=== PATIENT | female | born 1975 | race Caucasian/White ===

== ENCOUNTER 2017-06-21 08:22 | Emergency (ER) | payer OTHER ==
[~2017-06-21] VITALS: Ht 175.3 cm; Wt 60.1 kg
[~2017-06-21 08:22] MED LIST: CMD/25 PO
[2017-06-21 08:29] VITALS: TEMP 37.1; Ht 175.3 cm; Wt 60.1 kg
--- NOTE | 2017-06-21 09:36 | EMERGENCY ROOM VISIT NOTE ---
History Report prepared by Bunny: Ava Connor Under the Supervision of: Dr. Steve Curiel M.D. First contact with patient: 08:37 Chief Complaint: ARM PAIN Stated Complaint: LEFT ARM PAIN/ARMPIT-HX BLOOD CLOTS History of Present Illness The patient is a 42 year old female who presents to the Emergency Room with complaints of persistent pain in her left arm pit that began last evening. She currently rates her discomfort as a 2/10 in severity. The patient states that she has a history of DVTs of her left upper extremity two years ago. She states that she was started on Coumadin, but states that she has been taken off the Coumadin. The patient states that after further investigation, she was found to have Thoracic Outlet Syndrome. She states that she has been told that she is not a surgical candidate. The patient states that last evening she developed pain in her left armpit that was similar to when she had her DVTs. She states that after she consulted her PCP this morning, she was instructed to come to the emergency department for further evaluation and treatment. The patient does report that with her last DVT, she had swelling and discoloration to her left arm, but states that she does not have that this time. She does report chronic numbness to her left arm due to her Thoracic Outlet Syndrome. The patient states that she was previously on control when she was diagnosed with her first DVT, but states that she has been taken off her control and instructed to not take any hormones. She denies any recent travel, chance of , or being a smoker. The patient denies any heavy lifting. She additionally reports that she went to the chiropractor on Saturday for neck pain, but states that she has been there in the past for her pain. The patient denies any chest pain or shortness of breath. Source of History: patient Onset: last evening Position: other (under left arm pit) Symptom Intensity: 2/10 Timing: other (persistent) Associated Symptoms: + numbness (chronic left arm), No chest pain, No SOB Review of Systems See HPI for pertinent positives & negatives. A total of 10 systems reviewed and were otherwise negative. Past Medical & Surgical Medical Problems: (1) Thoracic outlet syndrome Family History No pertinent family history stated. Social History Smoking Status: Never Smoker Marital Status: Housing Status: lives with significant other Occupation Status: employed Current/Historical Medications Scheduled Aspirin (Aspirin Ec), 81 MG PO PRN Allergies Coded Allergies: Sulfa Drugs (Verified Allergy, Unknown, 06/21/17) Physical Exam Vital Signs Date Time Temp Pulse Resp B/P (MAP) Pulse Ox O2 Delivery O2 Flow Rate FiO2 06/21/17 12:10 64 18 131/68 100 06/21/17 10:20 63 18 118/67 100 Room Air 06/21/17 08:29 37.1 71 15 126/69 100 Room Air Physical Exam General: Non-ill appearing middle aged female in no acute distress. HEENT: Normal cephalic atraumatic. Pupils are equal round and reactive to light. Extraocular movements are intact. Oropharynx is pink with moist mucous membranes. No swelling of the mouth lips or tongue. Neck: Supple with a midline trachea. No meningeal signs or stiffness, no JVD or bruits. No Stridor. Chest: Clear to auscultation bilaterally. No wheezes or rhonchi. No increased work of breathing. Heart: regular rate and rhythm. Abdomen: Soft nontender, nondistended without rebound guarding or rigidity. Extremities: the left upper extremity has no swelling, redness, or warmth. Good pulses. No cyanosis clubbing or edema. No calf tenderness or assymetry Spine/Back. Non tender to palpation. No CVA tenderness Skin: Good turgor without rashes. Neurologic exam: Cranial nerves two through 12 are intact. Motor and sensation are intact and symmetrical throughout. Medical Decision & Procedures ER Provider Diagnostic Interpretation: Radiology results as stated below per my review and radiologist interpretation: L VENOUS DOPPLER UPR EXT UNIL HISTORY: Pain. Edema. eval for DVT COMPARISON STUDY: 06/26/2016 FINDINGS: No evidence for deep venous thrombosis on acute basis. Chronic thrombophlebitic change and associated venous scarring of the subclavian and axillary veins. This is similar as compared to the prior study. IMPRESSION: Chronic thrombophlebitis left arm with no change from the prior exam. No acute process. The above report was generated using voice recognition software. It may contain grammatical, syntax or spelling errors. Electronically signed by: Albin Sanchez M.D. 06/21/2017 9:47 AM Dictated Date/Time: 06/21/2017 9:46 AM Laboratory Results 06/21/17 10:10 Red Blood Count 4.43, Mean Corpuscular Volume 92.3, Mean Corpuscular Hemoglobin 30.2, Mean Corpuscular Hemoglobin Concent 32.8, Mean Platelet Volume 11.6, Neutrophils (%) (Auto) 65.9, Lymphocytes (%) (Auto) 25.0, Monocytes (%) (Auto) 6.9, Eosinophils (%) (Auto) 1.1, Basophils (%) (Auto) 1.1, Neutrophils # (Auto) 3.64, Lymphocytes # (Auto) 1.38, Monocytes # (Auto) 0.38, Eosinophils # (Auto) 0.06, Basophils # (Auto) 0.06 06/21/17 09:00 06/21/17 10:10 Test 06/21/17 09:00 06/21/17 10:10 Anion Gap 4.0 mmol/L (3-11) Est Creatinine Clear Calc Drug Dose 91.2 ml/min Estimated GFR () 111.2 Estimated GFR (Non- 95.9 BUN/Creatinine Ratio 20.7 (10-20) Calcium Level 9.0 mg/dl (8.5-10.1) Human Chorionic Gonadotropin, Qual NEG (NEG) White Blood Count 5.52 K/uL (4.8-10.8) Red Blood Count 4.43 M/uL (4.2-5.4) Hemoglobin 13.4 g/dL (12.0-16.0) Hematocrit 40.9 % (37-47) Mean Corpuscular Volume 92.3 fL (80-100) Mean Corpuscular Hemoglobin 30.2 pg (25-34) Mean Corpuscular Hemoglobin Concent 32.8 g/dl (32-36) Platelet Count 264 K/uL (130-400) Mean Platelet Volume 11.6 fL (7.4-10.4) Neutrophils (%) (Auto) 65.9 % Lymphocytes (%) (Auto) 25.0 % Monocytes (%) (Auto) 6.9 % Eosinophils (%) (Auto) 1.1 % Basophils (%) (Auto) 1.1 % Neutrophils # (Auto) 3.64 K/uL (1.4-6.5) Lymphocytes # (Auto) 1.38 K/uL (1.2-3.4) Monocytes # (Auto) 0.38 K/uL (0.11-0.59) Eosinophils # (Auto) 0.06 K/uL (0-0.5) Basophils # (Auto) 0.06 K/uL (0-0.2) RDW Standard Deviation 43.3 fL (36.4-46.3) RDW Coefficient of Variation 12.9 % (11.5-14.5) Immature Granulocyte % (Auto) 0.0 % Immature Granulocyte # (Auto) 0.00 K/uL (0.00-0.02) Prothrombin Time 10.6 SECONDS (9.0-12.0) Prothromb Time International Ratio 1.0 (0.9-1.1) Activated Partial Thromboplast Time 26.1 SECONDS (21.0-31.0) Partial Thromboplastin Ratio 1.0 D-Dimer 230 ug/L FEU (0-500) Laboratory studies as stated above per my review. ED Course 0838: Past medical records reviewed. The patient was evaluated in room A11B, and a complete history and physical examination were performed. 0956: I reevaluated the patient and she is resting comfortably. 1016: I reevaluated the patient and discussed the ultrasound results with her. We are awaiting blood work. 1123: I reevaluated the patient and she is resting comfortably. I discussed the exam findings with her. Dr. Huber will be consulted. 1129: I discussed the patients case with Dr. Huber, Coagulopathy. She states that the patient is okay to go home. 1142: I reevaluated the patient and she is doing well. I discussed the treatment plan with her and she verbalized complete understanding and agreement. She is ready to go home. Medical Decision Differentials include, but are not limited to; DVT, musculoskeletal pain, PE, thoracic outlet syndrome This patient comes in as described above. She was placed in room A 11. She is here for treatment and evaluation of pain in her left axilla. She has a history of having a DVT in the left upper extremity several years ago related to thoracic outlet syndrome. She was concerned that she could be getting another one. Besides that, she feels fine. She's had no chest pain or shortness breath or pleurisy. No trauma. There has been no swelling of the arm. No numbness or weakness. On exam, she has normal motor and sensation and no evidence of arterial or neurovascular compromise. She has stable vital signs. Ultrasound of the left upper extremity shows no acute findings and chronic changes. Her d-dimer is within normal limits which would further go against any clot. Based on the nonacute ultrasound and negative d-dimer, I think is highly unlikely a clot. She has no other acute findings on her blood work. I have discussed the case with Dr. Gill ans she agrees with the plan of having the patient go home and take an aspirin a day. She should follow with her doctor Saturday for recheck and may need a follow-up ultrasound if her symptoms persist. She should return here over the weekend if: worsening of symptoms, swelling, numbness or weakness, fever or chills, any new problems or concerns. She was happy with plan and discharged to home. Medication Reconcilliation Current Medication List: was personally reviewed by me Consults Time Called: 1125 Consulting Physician: Dr. Huber, Coagulopathy Returned Call: [phone] I discussed the patients case with Adeel Menezes. She states that the patient is okay to go home. Impression Primary Impression: Left axillary pain Scribe Attestation The scribe's documentation has been prepared under my direction and personally reviewed by me in its entirety. I confirm that the note above accurately reflects all work, treatment, procedures, and medical decision making performed by me. Departure Information Dispostion Home / Self-Care Referrals Ahmet Mendoza M.D. (PCP) Forms HOME CARE DOCUMENTATION FORM, IMPORTANT VISIT INFORMATION Patient Instructions [facility] Additional Instructions Rest. Return if: Increasing pain or swelling, shortness of breath, fever or chills, any new problems or concerns Follow-up with your doctor on Saturday for recheck or return to the ER over the weekend if symptoms worsen Take an aspirin a day. If your symptoms persist you may need a repeat ultrasound next week
[2017-06-21 09:48] LABS: PREG INTERNAL NEGATIVE QC NEG CLEAR BACKGROUND; PREG INTERNAL POSITIVE QC POS CONTROL LINE
--- NOTE | 2017-06-21 09:49 | DIAGNOSTIC IMAGING REPORT ---
L VENOUS DOPPLER UPR EXT UNIL HISTORY: Pain. Edema. eval for DVT COMPARISON STUDY: 06/26/2016 FINDINGS: No evidence for deep venous thrombosis on acute basis. Chronic thrombophlebitic change and associated venous scarring of the subclavian and axillary veins. This is similar as compared to the prior study. IMPRESSION: Chronic thrombophlebitis left arm with no change from the prior exam. No acute process. The above report was generated using voice recognition software. It may contain grammatical, syntax or spelling errors. Electronically signed by: Albin Sanchez M.D. 06/21/2017 9:47 AM Dictated Date/Time: 06/21/2017 9:46 AM
[2017-06-21 09:56] LABS: BLOOD UREA NITROGEN 16 mg/dl (7-18); BUN/CREATININE RATIO 20.7 (10-20); CARBON DIOXIDE 26 mmol/L (21-32); CHLORIDE 109 mmol/L (98-107); CREATININE 0.77 mg/dl (0.60-1.20); GLUCOSE 79 mg/dl (70-99); SODIUM 139 mmol/L (136-145)
[2017-06-21] MEDS ORDERED: ASPI81TA28 PO (10:24)
[2017-06-21 10:33] LABS: BASO % 1.1 %; BASO ABS # 0.06 K/uL (0-0.2); COMPLETE YES; EOS % 1.1 %; HEMATOCRIT 40.9 % (37-47); LYMPH ABS # 1.38 K/uL (1.2-3.4); MEAN CELL VOLUME 92.3 fL (80-100); MEAN CORPUSCULAR HEMOGLOBIN 30.2 pg (25-34); MEAN CORPUSCULAR HGB CONC 32.8 g/dl (32-36); MEAN PLATELET VOLUME 11.6 fL (7.4-10.4); MONO % 6.9 %; NEUT % 65.9 %; PLATELET COUNT 264 K/uL (130-400); RED BLOOD COUNT 4.43 M/uL (4.2-5.4); WHITE BLOOD COUNT 5.52 K/uL (4.8-10.8)
[2017-06-21 11:04] LABS: PROTHROMBIN TIME (PATIENT) 10.6 SECONDS (9.0-12.0)
[2017-06-21 12:10] VITALS: BP 131/68; PULSE 64; O2SAT 100
== END 2017-06-21 12:10 | disposition home or self-care (01) ==
LOC: C.EDB 08:24 → C.EDA 12:10
DX: M79.622 Pain in left upper arm (principal); G54.0 Brachial plexus disorders; Z86.718 Personal history of other venous thrombosis and embolism

== ENCOUNTER → 2017-06-25 | Outpatient (CLI) | payer OTHER ==
[~2017-06-25] MED LIST changes: +ASPI81TA28 PO; -CMD/25 PO
== END | disposition home or self-care (01) ==
LOC: C.PAPS 09:42
PROVIDERS: ATTEND Obstetrics & Gynecology
DX: Z01.411 Encounter for gynecological examination (general) (routine) with abnormal findings (principal); R87.610 Atypical squamous cells of undetermined significance on cytologic smear of cervix (ASC-US)

== ENCOUNTER → 2017-07-09 | Outpatient (CLI) | payer OTHER ==
--- NOTE | 2017-07-10 07:35 | MAMMOGRAPHY REPORT ---
BILATERAL DIGITAL DIAGNOSTIC MAMMOGRAM TOMOSYNTHESIS WITH CAD AND TARGETED BILATERAL ULTRASOUND: 07/09 CLINICAL HISTORY: 42-year-old woman initially callback from screening mammography dated 07/04/2016 fo r a possible mass in the medial right breast. Benign-appearing solid versus cystic masses are seen t hroughout the right upper inner quadrant on prior ultrasound, thought to represent benign fibrocystic change. Patient presents one year after an initial diagnostic workup failed to follow-up for a prev iously recommended six-month follow-up exam. Also has a history of benign biopsy in the 10:00 right breast, representing a fibroadenoma. TECHNIQUE: Bilateral breast tomosynthesis in addition to standard 2D mammography was performed. Choco tional 2-D XCCL views were also obtained. Current study was also evaluated with a Computer Aided Det ection (CAD) system. COMPARISON: Comparison is made to exams dated: 07/16/2016 ultrasound, 07/16/2016 mammogram, 07/04/20 16 mammogram, 07/26/2015 ultrasound biopsy, 07/26/2015 mammogram, and 06/28/2015 mammogram - [facility]. BREAST COMPOSITION: The tissue of both breasts is heterogeneously dense, which may obscure small mas ses. FINDINGS: There is a stable ribbon-shaped biopsy marker clip in the 10:00 far posterior right breast, adjacent to a partially circumscribed mass, representing the biopsy-proven fibroadenoma. There is a 6 mm nodular asymmetry in the superior, middle to posterior left breast on the MLO view, that does n ot definitely persist as a mass on the corresponding tomosynthesis images, but additional evaluation with ultrasound was performed. No other obvious mass, asymmetry, focal area of distortion or suspici ous microcalcifications are seen bilaterally. Targeted ultrasound was performed in the upper inner quadrant of the right breast, and also throughou t the superior left breast. Numerous oval parallel circumscribed predominantly cystic masses with in ternal septations and debris are seen scattered throughout the right breast. There are at least 4 si milar appearing cystic masses in the right breast 12:00 axis, and additional similar appearing cystic masses with internal septations and or nonvascular debris in the 4:00 periareolar region. There is a multilobulated conglomerate of cysts in the 10:00 right breast, 2 cm from the nipple, measuring 6.8 x 4.8 x 7.2 mm. A circumscribed parallel hypoechoic solid mass in the 10:00 right breast, 4 cm from the nipple which represents the biopsy-proven fibroadenoma. No new suspicious solid mass is seen in the right breast on ultrasound. Targeted ultrasound performed in the superior left breast demonstrates a morphologically normal lymph node in the 1:00 axis, 7 cm from the nipple. There is a predominantly cystic mass with internal killian ris, oval, parallel and circumscribed in the 2:00 left breast, 4 cm from the nipple, measuring 9.1 x 3.2 x 8.7 mm. A benign anechoic simple cyst identified in the 10:00 periareolar left breast measurin g 3.4 mm. No suspicious solid masses seen throughout the superior left breast on ultrasound or a kirill picious sonographic correlate for the nodular mammographic asymmetry. IMPRESSION: ACR BI-RADS CATEGORY 2: BENIGN, TARGETED ULTRASOUND ACR BI-RADS CATEGORY 2: BENIGN 1. Decreased nodularity in the medial right breast mammographically, without suspicious sonographic correlate identified. Numerous complicated cysts are scattered throughout the right breast on ultras ound in addition to the biopsy-proven fibroadenoma. These findings are compatible with benign fibroc ystic changes. There is no evidence of a suspicious mammographic or sonographic mass in the right br east. 2. A nodular asymmetry in the superior left breast mammographically has no suspicious sonographic co rrelate and effaces on the corresponding tomosynthesis images, most likely benign overlapping tissue. There are also scattered complicated cysts in the left breast on ultrasound, also representing rylie gn fibrocystic changes. 3. Overall, there is no mammographic or targeted sonographic evidence of malignancy bilaterally. Re commend routine screening tomosynthesis mammography in one year. These results and recommendations w ere discussed with the patient at the time of the exam. Approximately 10% of breast cancers are not detected with mammography. A negative mammographic report should not delay biopsy if a clinically suggestive mass is present. Rosalie Romo M.D. ay/:07/09/2017 14:51:51 Construction Laborer: Priyanka GALVAN)([place]), [facility] letter sent: Normal 1/2 BI-RADS Code: ACR BI-RADS Category 2: Benign Ultrasound BI-RADS: ACR BI-RADS Category 2: Benign
== END | disposition home or self-care (01) ==
LOC: C.MAMM 08:20
PROVIDERS: ATTEND Physician Assistant Medical
DX: N60.01 Solitary cyst of right breast (principal); N60.02 Solitary cyst of left breast; D24.1 Benign neoplasm of right breast; N64.89 Other specified disorders of breast